=== PATIENT | female | born 1945 | race Caucasian/White ===

== ENCOUNTER 2019-08-03 20:42 | Emergency (ER) | payer OTHER ==
[~2019-08-03] VITALS: Ht 152.4 cm; Wt 73.5 kg
[2019-08-03 20:44] VITALS: BP 169/98
--- NOTE | 2019-08-03 21:03 | NUR ---
PT AMBULATED TO BED 11 WITH STEADY GAIT
--- NOTE | 2019-08-03 21:05 | NUR ---
73 Y/O FEMALE C/O LUMP ON OUTSIDE OF PELVIC AREA. LUMP IS RED, HOT, SWOLLEN, TENDER TO TOUCH; NO DISCHARGE PRESENT; PT STATES TOOK PENICILLIN FOR THE PAST TWO DAYS IN HOPES IT MIGHT HELP, BUT NOT A RX FROM A PCP; DENIES N/V/D; SKIN IS PINK/WARM/DRY; AAOX4 WITH EVEN AND STEADY GAIT; PT DENIES ANY FEVER, CP, SOB, OR COUGH AT THIS TIME; PATIENT STATES PAIN OF 5/10 AT THIS TIME; VSS; PATIENT POSITIONED FOR COMFORT; HOB ELEVATED; BEDRAILS UP X1; BED DOWN AND LOCKED MEDICAL HX: ASTHMA/DM NKA
--- NOTE | 2019-08-03 21:08 | NUR ---
AT BEDSIDE EXAMINING PT
[2019-08-03 21:25] VITALS: BP 169/98
--- NOTE | 2019-08-03 21:25 | NUR ---
DPatient discharged with v/s stable. Written and verbal after care instructions given and explained. Patient alert, oriented and verbalized understanding of instructions. Ambulatory with steady gait. All questions addressed prior to discharge. ID band removed. Patient advised to follow up with PMD. Rx of KACTRIM/KEFLEX given. Patient educated on indication of medication including possible reaction and side effects. Opportunity to ask questions provided and answered.
== END 2019-08-03 21:25 | disposition home or self-care (01) ==
LOC: MED 20:42
DX: N73.2 Unspecified parametritis and pelvic cellulitis (principal); E11.9 Type 2 diabetes mellitus without complications; J45.909 Unspecified asthma, uncomplicated
CPT/HCPCS: 99283

== ENCOUNTER 2019-09-12 00:38 | Emergency (ER) | payer OTHER ==
[~2019-09-12] VITALS: Ht 144.8 cm; Wt 72.6 kg
[2019-09-12 00:55] VITALS: BP 164/75
--- NOTE | 2019-09-12 01:04 | NUR ---
PT TAKEN TO BED 12 VIA WHEELCHAIR.
--- NOTE | 2019-09-12 01:10 | NUR ---
74 Y/O FEMALE BROUGHT INTO ER BY DAUGHTER S/P FALL WITH INJURY TO RIGHT SHOULDER, AND ELBOW. 6/10 PAIN. ABRASION ON RIGHT SHOULDER, AND ELBOW. CAP REFILL <3 SECS, ULNAR/RADIAL PULSES PALPATED STRONG, AND REGULAR. DENIES NUMBNESS TINGLING IN RIGHT EXTREMITY. DENIES HEADACHE, LOC, SOB, NAUSEA, VOMITING, DIARRHEA. R/R EQUAL, AND UNLABORED, VSS. WILL CONTINUE TO MONITOR, BED IN LOW POSITION. NKDA PMH: DM, ASTHMA, HYPERLIPIDEMIA
--- NOTE | 2019-09-12 01:24 | NUR ---
Dr. Thomas examining patient.
[2019-09-12] MEDS ORDERED: KETOROLAC 60 MG/2 ML VIAL IM ONE (01:25)
[2019-09-12] MEDS ORDERED: NEOMYCIN/POLYMYXIN/BACITRACIN 0.9 GM/1 PKT TP ONE (01:30)
--- NOTE | 2019-09-12 01:30 | NUR ---
X-Ray at bedside.
--- NOTE | 2019-09-12 01:37 | NUR ---
NEOSPORIN LEFT AT BEDSIDE TO APPLY TO SCRAPES AFTER AREAS CLEANED BY EMT
--- NOTE | 2019-09-12 02:36 | NUR ---
LONG POSTERIOR ARM SPLINT AND SHOULDER SLING PLACED ON PTS RIGHT ARM. PTS PMSC WNL.
[2019-09-12 02:40] VITALS: BP 164/75
== END 2019-09-12 02:39 | disposition home or self-care (01) ==
LOC: MED 00:38
DX: S50.01XA Contusion of right elbow, initial encounter (principal); S40.211A Abrasion of right shoulder, initial encounter; E11.9 Type 2 diabetes mellitus without complications; I10 Essential (primary) hypertension; W18.39XA Other fall on same level, initial encounter; Y93.89 Activity, other specified; Y92.89 Other specified places as the place of occurrence of the external cause; Y99.8 Other external cause status
CPT/HCPCS: 29105; 73030; 73080; 96372; 99284; J1885; Q0092

== ENCOUNTER 2019-12-06 01:11 | Emergency (ER) | payer OTHER ==
[~2019-12-06] VITALS: Ht 149.9 cm; Wt 73.5 kg
[2019-12-06 01:20] VITALS: BP 180/93
--- NOTE | 2019-12-06 01:28 | NUR ---
PT AMBUALTED TO RESTROOM WITH STEADY GAIT. ACCUCHECK: [phone]. ERMD MADE AWARE.
--- NOTE | 2019-12-06 01:32 | NUR ---
PT PROVIDED UA.
--- NOTE | 2019-12-06 01:33 | NUR ---
PT TAKEN TO BED 4
[2019-12-06] MEDS ORDERED: KETOROLAC 30 MG/ML VIAL IVP ONE (01:45)
--- NOTE | 2019-12-06 01:45 | NUR ---
74 Y/O F PRESENTS TO ED C/O EPIGATRIC PAIN X 3 DAYS. PT SAID THAT SHE'S BEEN EATING A LOT LATELY AND EXPERIENCED EPIGASTRIC PAIN. DENIES N/V/D. PT DIABETIC AND IS NONCOMPLIANT WITH MEDICATION. BED LOCKED AND IN LOWEST POSITION, SIDE RAIL UP X1, WILL CONTINUE TO MONITOR. MHX: DIABETES, ASTHMA NKA
--- NOTE | 2019-12-06 01:53 | NUR ---
LAB AT BEDSIDE.
[2019-12-06 01:58] LABS: APPEARANCE,URINE CLEAR (CLEAR); BILIRUBIN,URINE NEGATIVE (NEGATIVE); BLOOD, URINE NEGATIVE (NEGATIVE); COLOR,URINE YELLOW (YELLOW); LEUKOCYTE ESTERASE ,URINE NEGATIVE (NEGATIVE); NITRITE, URINE NEGATIVE (NEGATIVE); PH,URINE 6.5 (5.0-9.0); UGLUCOSE 3+ (NEGATIVE)
--- NOTE | 2019-12-06 01:58 | NUR ---
PT TAKEN TO CT
[2019-12-06 02:00] LABS: BASOPHILS # (AUTO) 0.1 K/uL (0.00-0.22); BASOPHILS % (AUTO) 0.5 % (0.0-2.0); EOSINOPHILS # (AUTO) 0.3 K/uL (0-0.4); EOSINOPHILS % (AUTO) 2.3 % (0.0-4.0); HEMATOCRIT 39.1 % (36-48); HEMOGLOBIN 12.9 g/dL (12.0-16.0); LYMPHOCYTES # (AUTO) 3.1 K/uL (2.5-16.5); LYMPHOCYTES % (AUTO) 25.8 % (20.5-51.1); MEAN CORPUSCULAR HEMOGLOBIN 29 pg (27-31); MEAN CORPUSCULAR HGB CONC 33 g/dL (33-37); MEAN CORPUSCULAR VOLUME 89.2 fL (80-94); MONOCYTES # (AUTO) 0.9 K/uL (0.8-1.0); MONOCYTES % (AUTO) 7.3 % (1.7-9.3); NEUTROPHILS # (AUTO) 7.6 K/uL (1.8-7.7); NEUTROPHILS % (AUTO) 64.1 % (42.2-75.2); PLATELET COUNT (AUTO) 241 K/uL (140-450); RED BLOOD CELL COUNT(AUTO) 4.39 MIL/uL (4.20-5.40); RED CELL DISTRIBUTION WIDTH 13.2 % (11.6-13.7); WHITE BLOOD COUNT (AUTO) 11.9 K/uL (4.8-10.8)
--- NOTE | 2019-12-06 02:09 | NUR ---
PT BACK FROM CT VIA [facility].
[2019-12-06 02:21] LABS: ALBUMIN 3.2 g/dL (3.4-5.0); ASPARTATE AMINOTRANSFERASE 17 U/L (15-37); CARBON DIOXIDE 30.2 mmol/L (21-32); CHLORIDE 95 mmol/L (98-107); LIPASE 231 U/L (73-393); POTASSIUM 4.2 mmol/L (3.5-5.1); SODIUM SERUM 133 mmol/L (136-145); TOTAL BILIRUBIN 0.4 mg/dL (0.0-1.0); UREA NITROGEN, BLOOD 16 mg/dL (7-18)
--- NOTE | 2019-12-06 02:21 | NUR ---
DR. TRAN AT BEDSIDE EVALUATING PT.
--- NOTE | 2019-12-06 02:28 | NUR ---
RECIVED [facility] LAB REPORT FROM [facility] [id number]. CARLO MADE AWARE.
[2019-12-06] MEDS ORDERED: NACL 0.9% 1,000 ML IV ONE (02:30)
[2019-12-06 02:32] LABS: GLUCOSE 499 mg/dL (74-106)
--- NOTE | 2019-12-06 03:05 | NUR ---
Patient discharged with v/s stable. Written and verbal after care instructions given and explained. Patient alert, oriented and verbalized understanding of instructions. Ambulatory with steady gait. All questions addressed prior to discharge. ID band removed. Patient advised to follow up with PMD. Rx of MOTRIN, PRILOSEC, NORCO given. Patient educated on indication of medication including possible reaction and side effects. Opportunity to ask questions provided and answered.
[2019-12-06 03:06] VITALS: BP 180/93
== END 2019-12-06 03:05 | disposition home or self-care (01) ==
LOC: MED 01:11
DX: R10.13 Epigastric pain (principal); J45.909 Unspecified asthma, uncomplicated; E11.9 Type 2 diabetes mellitus without complications; I10 Essential (primary) hypertension
CPT/HCPCS: 36415; 74176; 80053; 81003; 83690; 85025; 96361; 96374; 99284; J1885; J7030

== ENCOUNTER 2020-03-15 17:14 | Emergency (ER) | payer OTHER ==
[~2020-03-15] VITALS: Ht 152.4 cm; Wt 95.3 kg
[2020-03-15 19:20] VITALS: BP 173/83
--- NOTE | 2020-03-15 19:20 | NUR ---
TO TENT # 01 AMBULATORY
[2020-03-15 20:29] LABS: BASOPHILS % (AUTO) 0.2 % (0.0-2.0); EOSINOPHILS % (AUTO) 0.2 % (0.0-4.0); HEMATOCRIT 41.9 % (36-48); LYMPHOCYTES # (AUTO) 1.7 K/uL (2.5-16.5); LYMPHOCYTES % (AUTO) 25.7 % (20.5-51.1); MEAN CORPUSCULAR HEMOGLOBIN 30 pg (27-31); MEAN CORPUSCULAR HGB CONC 33 g/dL (33-37); MEAN CORPUSCULAR VOLUME 88.5 fL (80-94); MONOCYTES # (AUTO) 0.5 K/uL (0.8-1.0); MONOCYTES % (AUTO) 7.8 % (1.7-9.3); NEUTROPHILS # (AUTO) 4.5 K/uL (1.8-7.7); NEUTROPHILS % (AUTO) 66.1 % (42.2-75.2); PLATELET COUNT (AUTO) 231 K/uL (140-450); RED BLOOD CELL COUNT(AUTO) 4.73 MIL/uL (4.20-5.40); RED CELL DISTRIBUTION WIDTH 13.4 % (11.6-13.7); WHITE BLOOD COUNT (AUTO) 6.8 K/uL (4.8-10.8)
[2020-03-15 20:43] LABS: PROTHROMBIN TIME 9.2 secs (10.8-13.4)
[2020-03-15 20:44] LABS: ALBUMIN 3.2 g/dL (3.4-5.0); ANION GAP 13.1 (8-16); ASPARTATE AMINOTRANSFERASE 33 U/L (15-37); CHLORIDE 97 mmol/L (98-107); CREATININE 0.8 mg/dL (0.6-1.3); GLUCOSE 340 mg/dL (74-106); POTASSIUM 4.1 mmol/L (3.5-5.1); SODIUM SERUM 134 mmol/L (136-145); TOTAL BILIRUBIN 0.4 mg/dL (0.0-1.0); UREA NITROGEN, BLOOD 9 mg/dL (7-18)
--- NOTE | 2020-03-15 21:01 | NUR ---
EKG PERFORMED IN AUTOMOBILE WITH FAMILY PRESENT
--- NOTE | 2020-03-15 23:17 | NUR ---
PT WAS D/C, BUT LEFT WITHOUT RECIEVING DISCHARGE PAPERWORK. PT WAS GIVEN MEDICATION PRESCRIPTIONS AND PAPERWORK ON IN HOME CARE. PT AMBULATED OUT OF ER. PAPERWORK WILL BE HELD FOR PT TO GIFT OFFICER.
[2020-03-15 23:19] VITALS: BP 173/83
== END 2020-03-15 23:20 | disposition home or self-care (01) ==
LOC: MED 17:14
DX: M79.671 Pain in right foot (principal); Z20.828 Contact with and (suspected) exposure to other viral communicable diseases; M79.672 Pain in left foot; J45.909 Unspecified asthma, uncomplicated; E11.9 Type 2 diabetes mellitus without complications; I10 Essential (primary) hypertension
CPT/HCPCS: 36415; 71045; 80053; 83605; 83880; 84484; 85025; 85610; 85730; 87040; 93005; 99285

== ENCOUNTER 2021-02-18 10:44 | Inpatient (IN) | payer OTHER ==
[~2021-02-18] VITALS: Ht 154.9 cm; Wt 69.4 kg
[2021-02-18 10:58] VITALS: BP 158/73
--- NOTE | 2021-02-18 11:05 | NUR ---
Patient ambulated to bed 04 with steady/even gait, accompanied by daughter.
--- NOTE | 2021-02-18 11:25 | NUR ---
75 y/o F BIB daughter c/o left ear ache and pain since Friday. Daughter at bedside states patient began experiencing left ear ache on Friday, and on Friday it radiated from her left ear down to her left hand. Daughter states patient was at home when this began. Rates left ear ache 10/10, throbbing/constant, radiating down L arm. Pt states Ibuprofen 800mg at 0300 with temporary relief. Patient denies fever, chills, SOB, chest pain, abdominal pain, dizziness, headache. Bed locked in lowest position, side rails x 1, call light in reach. PMH: diabetes, HTN, asthma, nerve issues Meds: gabapentin, insulin humalog, insulin lantus NKA
--- NOTE | 2021-02-18 11:35 | NUR ---
Vic sánchez in ED - 02/18/[address] at [address] Coffman is evaluating patient at bedside
--- NOTE | 2021-02-18 11:35 | NUR ---
DR GUSTAFSON AT BEDSIDE EVALUATING PT
[2021-02-18] MEDS ORDERED: OFLOXACIN 0.3% OT 5 ML SOL OT SCH (11:45)
[2021-02-18] MEDS ORDERED: KETOROLAC 30 MG/ML VIAL IVP ONE (11:45)
[2021-02-18] MEDS ORDERED: AMOXIL/CLAVULANATE 875/125 MG 1 TAB PO ONE (11:45)
[2021-02-18] MEDS ORDERED: NACL 0.9% 1,000 ML IV ONE (11:45)
[2021-02-18] MEDS ORDERED: CIPROFLOXACIN HCL OT SCH (12:00)
[2021-02-18] MEDS ORDERED: DEXAMETH OT SCH (12:00)
--- NOTE | 2021-02-18 12:02 | NUR ---
Blood sample handed to CPT Jasmin at ER bedside
[2021-02-18 12:12] LABS: BASOPHILS # (AUTO) 0.1 K/uL (0.00-0.22); EOSINOPHILS # (AUTO) 0.4 K/uL (0-0.4); EOSINOPHILS % (AUTO) 4.1 % (0.0-4.0); HEMATOCRIT 38.7 % (36-48); LYMPHOCYTES # (AUTO) 3.4 K/uL (2.5-16.5); LYMPHOCYTES % (AUTO) 33.5 % (20.5-51.1); MEAN CORPUSCULAR HEMOGLOBIN 30 pg (27-31); MEAN CORPUSCULAR HGB CONC 34 g/dL (33-37); MEAN CORPUSCULAR VOLUME 88.6 fL (80-94); MONOCYTES # (AUTO) 0.7 K/uL (0.8-1.0); MONOCYTES % (AUTO) 6.6 % (1.7-9.3); NEUTROPHILS # (AUTO) 5.6 K/uL (1.8-7.7); NEUTROPHILS % (AUTO) 54.8 % (42.2-75.2); PLATELET COUNT (AUTO) 198 K/uL (140-450); RED BLOOD CELL COUNT(AUTO) 4.37 MIL/uL (4.20-5.40); WHITE BLOOD COUNT (AUTO) 10.3 K/uL (4.8-10.8)
[2021-02-18 12:15] LABS: ANION GAP 11.1 (8-16); CARBON DIOXIDE 29.8 mmol/L (21-32); CHLORIDE 106 mmol/L (98-107); CREATININE 0.5 mg/dL (0.6-1.3); GLUCOSE 152 mg/dL (74-106); POTASSIUM 4.9 mmol/L (3.5-5.1); SODIUM SERUM 142 mmol/L (136-145); UREA NITROGEN, BLOOD 17 mg/dL (7-18)
--- NOTE | 2021-02-18 12:21 | NUR ---
Daughter remains at bedside. Pt states pain 0/10.
--- NOTE | 2021-02-18 12:22 | NUR ---
Patient moved from bed 04 to bed 05.
--- NOTE | 2021-02-18 12:23 | NUR ---
[facility]
--- NOTE | 2021-02-18 12:35 | NUR ---
Pt returned from CT by alonso
[2021-02-18] MEDS ORDERED: ASPIRIN 325 MG TAB PO ONE (13:20)
[2021-02-18] MEDS ORDERED: LORazepam 2 MG/ML VIAL IM/IVP PRN (14:10)
[2021-02-18] MEDS ORDERED: ONDANSETRON 4 MG/2 ML VIAL IVP PRN (14:10)
[2021-02-18] MEDS ORDERED: DOCUSATE SODIUM 100 MG GELCAP PO PRN (14:10)
[2021-02-18] MEDS ORDERED: ZOLPIDEM 5 MG TAB PO PRN (14:10)
[2021-02-18] MEDS ORDERED: ACETAMINOPHEN 325 MG TAB PO PRN (14:10)
[2021-02-18] MEDS ORDERED: MAG SULF 2000 MG/WATER PREMIX 50 ML IV PRN (14:10)
[2021-02-18] MEDS ORDERED: SODIUM PHOS / POTASSIUM PHOS 1 PKT PDR PO PRN (14:10)
[2021-02-18] MEDS ORDERED: MORPHINE SULFATE 2 MG/ML SYR IVP PRN (14:10)
[2021-02-18] MEDS ORDERED: POTASSIUM CHLORIDE 10 MEQ TABER PO PRN (14:10)
[2021-02-18 14:58] LABS: PROTHROMBIN TIME 12.4 secs (10.8-13.4)
--- NOTE | 2021-02-18 15:00 | NUR ---
Pt c/o left arm discomfort; states left ear ache relieved. PRN orders to be given.
[2021-02-18 15:12] LABS: CHOL/HDL RATIO 2.7 (1-4.5); FREE T4 (FREE THYROXINE) 1.01 ng/dL (0.76-1.46); PHOSPHORUS 3.8 mg/dL (2.5-4.9); THYROID STIMULATING HORMONE 2.67 uIU/mL (0.34-3.74)
[2021-02-18] MEDS: NACL 0.9% 1,000 ML IV SCH (15:12)
[2021-02-18] MEDS ORDERED: LISI5TAB18 PO (15:22)
[2021-02-18] MEDS ORDERED: GABA100C PO (15:22)
[2021-02-18] MEDS ORDERED: INSU100S22 SUBQ (15:22)
[2021-02-18] MEDS ORDERED: ATOR10TA PO (15:22)
[2021-02-18] MEDS ORDERED: HUMSLIDE (15:22)
--- NOTE | 2021-02-18 15:22 | NUR ---
Report given to BUDDY Wood.
--- NOTE | 2021-02-18 15:36 | NUR ---
Patient will be admitted to care of Dr. Gonzalez. Admited to Telemetry. Will go to room 120B. Belongings list completed. Report to BUDDY Wood.
--- NOTE | 2021-02-18 15:38 | NUR ---
RECEIVED PATIENT REPORT FROM [facility] ER NURSE. AWAITING FOR PATIENT TO ARRIVE.
[2021-02-18 15:55] VITALS: BP 149/72
--- NOTE | 2021-02-18 15:55 | NUR ---
RECEIVED PATIENT FROM ER NURSE VIA JOHN. ADMITTED FOR CHEST PAIN. PT IS AOX4, ABLE TO MAKE NEEDS KNOWN. PARAGUAYAN SPEAKING. RESPIRATIONS EVEN AND UNLABORED. ON ROOM AIR AND NO RESPIRATORY DISTRESS NOTED. SKIN IS WARM AND DRY. IV SITE ON RAC 20G. ABD SOFT, FLAT, AND NON-DISTENDED. BOWEL SOUNDS ACTIVE IN ALL QUADRANTS. DENIES PAIN AT THE MOMENT. PLAN OF CARE DISCUSSED. SAFETY PRECAUTIONS IN PLACE. BED IN LOW POSITION. CALL LIGHT WITHIN REACH. WILL CONTINUE TO MONITOR.
[2021-02-18] MEDS ORDERED: DEXTROSE 50% 50 ML SYR IVP PRN ×2 (16:55→18:25)
[2021-02-18] MEDS ORDERED: INSULIN LISPRO SLIDING SCALE 100 UNITS/ML VIAL SUBQ PRN (16:55)
--- NOTE | 2021-02-18 17:48 | NUR ---
ASSISTED PATIENT TO THE BATHROOM. PT DENIES PAIN AT THE MOMENT.
--- NOTE | 2021-02-18 19:45 | NUR ---
ENDORSED TO SKI MOLDER NURSE FOR CONTINUITY OF CARE. PT IS STABLE.
--- NOTE | 2021-02-18 19:50 | NUR ---
RECEIVED REPORT AT BEDSIDE.PT IS A,A&O.RESP.UNLABORED IN RA.IVF INFUSING WELL.TELE IS ON AND SHOWING SR.CALL LIGHT WITHIN REACH.VS STABLE.WILL CONT.MONITORING.NO C/O PAIN NOW.
[2021-02-18 20:00] VITALS: BP 155/80
[2021-02-18] MEDS: ATORVASTATIN 20 MG TAB PO SCH (20:52)
[2021-02-18] MEDS: GABAPENTIN 100 MG CAP PO SCH (20:53)
[2021-02-18] MEDS ORDERED: BLOOD GLUCOSE MONITORING 1 DEV DEV FS SCH (21:00)
[2021-02-18] MEDS ORDERED: CIPROFLOXACIN 0.3% OP 2.5 ML BTL OT SCH (21:00)
[2021-02-18] MEDS ORDERED: CIPROFLOXACIN 0.3% OP 2.5 ML BTL OP SCH (21:00)
[2021-02-18] MEDS: BLOOD GLUCOSE MONITORING 1 DEV DEV FS SCH (21:02)
[2021-02-18] MEDS: INSULIN LISPRO SLIDING SCALE 100 UNITS/ML VIAL SUBQ PRN (21:03)
[2021-02-19] VITALS: BP 145/79
--- NOTE | 2021-02-19 01:00 | NUR ---
CHANGED ROOM DUE TO BATH ROOM PROBLEM.HR IS SR.NO DISTRESS NOTED NOW.FREQUENT ROUND DONE.VS STABLE.CALL LIGHT IN REACH.
[2021-02-19] MEDS: NACL 0.9% 1,000 ML IV SCH ×3 (01:15→20:10)
[2021-02-19] MEDS: HYDROcodone/APAP 5/325 MG 1 TAB TAB PO PRN (03:46)
--- NOTE | 2021-02-19 03:52 | NUR ---
HAD C/O EARACHE PO PAIN MED GIVEN.WILL REASSESS PER PROTOCOL.
[2021-02-19 04:00] VITALS: BP 146/79
[2021-02-19 05:36] LABS: BASOPHILS % (AUTO) 0.4 % (0.0-2.0); EOSINOPHILS # (AUTO) 0.4 K/uL (0-0.4); EOSINOPHILS % (AUTO) 3.6 % (0.0-4.0); HEMOGLOBIN 12.2 g/dL (12.0-16.0); LYMPHOCYTES % (AUTO) 30.1 % (20.5-51.1); MEAN CORPUSCULAR HEMOGLOBIN 30 pg (27-31); MEAN CORPUSCULAR HGB CONC 34 g/dL (33-37); MEAN CORPUSCULAR VOLUME 88.4 fL (80-94); MONOCYTES # (AUTO) 0.6 K/uL (0.8-1.0); MONOCYTES % (AUTO) 6.2 % (1.7-9.3); NEUTROPHILS # (AUTO) 5.9 K/uL (1.8-7.7); NEUTROPHILS % (AUTO) 59.7 % (42.2-75.2); PLATELET COUNT (AUTO) 266 K/uL (140-450); RED BLOOD CELL COUNT(AUTO) 4.07 MIL/uL (4.20-5.40); RED CELL DISTRIBUTION WIDTH 13.2 % (11.6-13.7)
[2021-02-19] MEDS: BLOOD GLUCOSE MONITORING 1 DEV DEV FS SCH ×4 (05:55→20:35)
--- NOTE | 2021-02-19 06:11 | NUR ---
SLEPT WELL.NO C/O EARACHES NOW.MH=119.DID NOT COVER.IVF IS IN PROGRESS.CALL LIGHT IN REACH.HR IS SR.
[2021-02-19 06:19] LABS: ALBUMIN 2.8 g/dL (3.4-5.0); ANION GAP 8.9 (8-16); ASPARTATE AMINOTRANSFERASE 16 U/L (15-37); CARBON DIOXIDE 30.6 mmol/L (21-32); CHLORIDE 109 mmol/L (98-107); CREATININE 0.6 mg/dL (0.6-1.3); GLUCOSE 132 mg/dL (74-106); MAGNESIUM 1.9 mg/dL (1.8-2.4); POTASSIUM 4.5 mmol/L (3.5-5.1); SODIUM SERUM 144 mmol/L (136-145); TOTAL BILIRUBIN 0.3 mg/dL (0.0-1.0); UREA NITROGEN, BLOOD 11 mg/dL (7-18)
--- NOTE | 2021-02-19 07:21 | NUR ---
REPORT GIVEN TO NOE RN.PT'S CONDITION IS STABLE.
[2021-02-19 08:00] VITALS: BP 175/82
[2021-02-19] MEDS: GABAPENTIN 100 MG CAP PO SCH ×2 (08:39→20:29)
--- NOTE | 2021-02-19 08:49 | NUR ---
PATIENT HAS BEEN SCREENED AND CATEGORIZED LOW NUTRITION RISK. PATIENT WILL BE SEEN WITHIN 7 DAYS OF ADMISSION. 02/25/[address]
[2021-02-19] MEDS ORDERED: lisinopriL 5 MG TAB PO SCH (09:00)
[2021-02-19] MEDS: INSULIN LISPRO SLIDING SCALE 100 UNITS/ML VIAL SUBQ PRN ×3 (11:40→20:36)
[2021-02-19 12:00] VITALS: BP 176/89
--- NOTE | 2021-02-19 12:12 | NUR ---
Patient's blood pressure elevated. Notified Physician Dr Hollingsworth and awaiting further orders.
[2021-02-19] MEDS ORDERED: hydrALAZINE 20 MG/ML VIAL IVP PRN (12:30)
[2021-02-19] MEDS ORDERED: lisinopriL 10 MG TAB PO SCH (13:00)
[2021-02-19 16:00] VITALS: BP 145/70
--- NOTE | 2021-02-19 19:20 | NUR ---
RECEIVED REPORT FROM AM SHIFT NURSE, FOR CONTINUITY OF CARE. PT IS AWAKE, A&OX4. PT IS AMBULATORY. NO S/S OF DISTRESS. PT IS ON ROOM AIR. BREATHING IS EVEN AND UNLABORED. DENIES PAIN AT THIS TIME. SKIN IS WARM, DRY AND NON DIAPHORETIC. IV ON L FA 22G RUNNING NS @ 100MLS/HR. CALL LIGHT WITHIN REACH. ALL SAFETY MEASURES IN PLACE. WILL CONTINUE TO MONITOR.
[2021-02-19 20:00] VITALS: BP 176/82
[2021-02-19] MEDS: ATORVASTATIN 20 MG TAB PO SCH (20:30)
--- NOTE | 2021-02-19 20:35 | NUR ---
BLOOD GLUCOSE CHECKED, 305. ADMINISTERED INSULIN COVERAGE AND SCHEDULED MEDICATION. PT TOLERATED IT WELL. WILL CONTINUE TO MONITOR.
--- NOTE | 2021-02-19 21:59 | NUR ---
PT BP 176/82, ADMINISTERED PRN APRESOLINE IVP ORDERED, PT TOLERATED IT WELL. ALL SAFETY MEASURES IN PLACE. WILL CONTINUE TO MONITOR.
[2021-02-20] VITALS: BP 134/69
--- NOTE | 2021-02-20 00:05 | NUR ---
CHECKED ON PT, NO S/S OF DISTRESS. RESPIRATIONS EVEN AND UNLABORED. V/S ARE STABLE. CALL LIGHT WITHIN REACH. WILL CONTINUE TO MONITOR.
[2021-02-20] MEDS: NACL 0.9% 1,000 ML IV SCH (01:42)
--- NOTE | 2021-02-20 02:20 | NUR ---
MADE ROUNDS ON PT, SLEEPING. NO S/S OF DISTRESS. CHEST RISE AND FALL IS SYMMETRICAL. BED ON LOW/LOCKED POSITION. ALL SAFETY MEASURES IN PLACE. WILL CONTINUE TO MONITOR.
[2021-02-20 04:00] VITALS: BP 141/74
[2021-02-20] MEDS: HYDROcodone/APAP 5/325 MG 1 TAB TAB PO PRN (05:23)
--- NOTE | 2021-02-20 05:23 | NUR ---
PT COMPLAINS OF HEADACHE 09/07. REQUESTED PAIN MEDICATION. ADMINISTERED NORCO TAB ORDERED. PT TOLERATED IT WELL. WILL CONTINUE TO MONITOR.
[2021-02-20 06:00] LABS: BASOPHILS # (AUTO) 0.1 K/uL (0.00-0.22); BASOPHILS % (AUTO) 0.7 % (0.0-2.0); EOSINOPHILS # (AUTO) 0.3 K/uL (0-0.4); EOSINOPHILS % (AUTO) 3.3 % (0.0-4.0); HEMATOCRIT 34.2 % (36-48); HEMOGLOBIN 11.6 g/dL (12.0-16.0); LYMPHOCYTES # (AUTO) 3.2 K/uL (2.5-16.5); LYMPHOCYTES % (AUTO) 32.2 % (20.5-51.1); MEAN CORPUSCULAR HEMOGLOBIN 30 pg (27-31); MEAN CORPUSCULAR HGB CONC 34 g/dL (33-37); MEAN CORPUSCULAR VOLUME 88.5 fL (80-94); MONOCYTES # (AUTO) 0.7 K/uL (0.8-1.0); MONOCYTES % (AUTO) 6.8 % (1.7-9.3); NEUTROPHILS # (AUTO) 5.7 K/uL (1.8-7.7); PLATELET COUNT (AUTO) 265 K/uL (140-450); RED BLOOD CELL COUNT(AUTO) 3.87 MIL/uL (4.20-5.40)
[2021-02-20 06:25] LABS: ALBUMIN 2.7 g/dL (3.4-5.0); ANION GAP 7.7 (8-16); ASPARTATE AMINOTRANSFERASE 17 U/L (15-37); CARBON DIOXIDE 29.1 mmol/L (21-32); CHLORIDE 109 mmol/L (98-107); CREATININE 0.6 mg/dL (0.6-1.3); GLUCOSE 192 mg/dL (74-106); POTASSIUM 3.8 mmol/L (3.5-5.1); SODIUM SERUM 142 mmol/L (136-145); TOTAL BILIRUBIN 0.3 mg/dL (0.0-1.0); UREA NITROGEN, BLOOD 13 mg/dL (7-18)
[2021-02-20] MEDS: BLOOD GLUCOSE MONITORING 1 DEV DEV FS SCH ×2 (06:40→11:30)
[2021-02-20] MEDS: INSULIN LISPRO SLIDING SCALE 100 UNITS/ML VIAL SUBQ PRN ×2 (06:40→13:02)
--- NOTE | 2021-02-20 06:40 | NUR ---
BLOOD GLUCOSE CHECKED 201, ADMINISTERED INSULIN COVERAGE ORDERED. PT TOLERATED IT WELL. WILL CONTINUE TO MONITOR.
--- NOTE | 2021-02-20 07:30 | NUR ---
RECEIVED PT AAOX4. NO SOB NOTED. NO C/O PAIN AT THIS TIME. IV TO LFA PATENT AND INTACT. CHEST, DIMINISHED AIR ENTRY TO THE BASES. ABDOMEN SOFT, BOWEL SOUNDS PRESENT. NO EDEMA NOTED. INSTRUCTED PT TO CALL FOR ASSISTANCE, CALL LIGHT WITHIN REACH, PT VERBALIZED UNDERSTANDING.
[2021-02-20 08:00] VITALS: BP 161/76
[2021-02-20] MEDS: GABAPENTIN 100 MG CAP PO SCH (08:46)
[2021-02-20] MEDS ORDERED: lisinopriL 20 MG TAB PO SCH (09:00)
--- NOTE | 2021-02-20 09:25 | NUR ---
pt ambulatory to the bathroom with standby assist. activity tolerated well by pt. no SOB noted. no signs of pain. pt's gait steady with cane.
[2021-02-20] MEDS ORDERED: LISI40TA12 PO (10:12)
[2021-02-20] MEDS ORDERED: CIPR7.5S OT (10:12)
[2021-02-20 12:00] VITALS: BP 145/75
--- NOTE | 2021-02-20 13:30 | NUR ---
DISCHARGE INSTRUCTIONS GIVEN TO PT'S GRAND DAUGHTER ASIA WHICH SPEAKS FLUENT PASHTO AND TELUGU. ALL QUESTIONS ANSWERED, BOTH VERBALIZED UNDERSTANDING. ASIA IS AWARE THAT PT'S ESCRIPTS WERE SENT TO THEIR PREFERRED PHARMACY. ARM BANDS AND IV REMOVED, CANNULA TIP INTACT.
--- NOTE | 2021-02-20 13:40 | NUR ---
PT IS WHEELED TO THE FRONT LOBBY IN STABLE CONDITION, NO COMPLAINTS MADE. PT IS D/C HOME WITH GRAND DAUGHTER.
[2021-02-20] MEDS ORDERED: OFLOXACIN 0.3% OT 5 ML SOL OT SCH (21:00)
== END 2021-02-20 13:40 | disposition home or self-care (01) | DRG 154 ==
LOC: MED 10:44 → MTU 14:09 → MMU 02-19 00:50
PROVIDERS: ADMIT Family Medicine; ATTEND Family Medicine
DX: H60.92 Unspecified otitis externa, left ear (principal); E43 Unspecified severe protein-calorie malnutrition; G90.9 Disorder of the autonomic nervous system, unspecified; E11.40 Type 2 diabetes mellitus with diabetic neuropathy, unspecified; E78.5 Hyperlipidemia, unspecified; I10 Essential (primary) hypertension; J45.909 Unspecified asthma, uncomplicated; Z79.4 Long term (current) use of insulin; Z79.899 Other long term (current) drug therapy
CPT/HCPCS: 36415; 70450; 71045; 80048; 80053; 82150; 82948; 83036; 83690; 83735; 83880; 84100; 84439; 84443; 84484; 85025; 85610; 85730; 87081; 93005; 93880; 96374; 97163-GP; 99285; J0360; J1885; J2270; J2405; Q0092

== ENCOUNTER 2022-04-24 15:24 | Emergency (ER) | payer OTHER, MEDICAID ==
[~2022-04-24] VITALS: Ht 160 cm; Wt 77.1 kg
[~2022-04-24 15:24] MED LIST: ATOR10TA PO; CIPR7.5S OT; GABA100C PO; HUMSLIDE; INSU100S22 SUBQ; LISI40TA12 PO
[2022-04-24 15:37] VITALS: BP 176/106
[2022-04-24] MEDS ORDERED: cefTRIAXone 1,000 MG VIAL ONE (15:51)
[2022-04-24] MEDS ORDERED: LIDOCAINE MPF 1% 5 ML ONE (15:51)
[2022-04-24] MEDS: cefTRIAXone 1,000 MG in LIDOCAINE MPF 1% 2.1 ML IM ONE (16:00)
--- NOTE | 2022-04-24 16:05 | NUR ---
76F presents to ED with c/o lower lip infection x 2 days. Pt reports being seen at [facility] on 04/15/22 and admitted s/p fall and laceration to lower lip, states no ABX were given during admission or Rx'd upon d/c. Pt referred by PCP today to visit ED for evaluation and tx of infection. Upon assessment, pt's stitches still intact, swelling noted to lower lip, pt denies pain.
[2022-04-24] MEDS ORDERED: CEPH-588 PO ×2 (16:25→17:27)
[2022-04-24] MEDS ORDERED: SULF-59 PO ×2 (16:25→17:27)
[2022-04-24] MEDS ORDERED: ACET-5629 PO ×2 (16:25→17:27)
[2022-04-24 16:58] VITALS: BP 176/106
--- NOTE | 2022-04-24 16:58 | NUR ---
Patient discharged with v/s stable. Written and verbal after care instructions about cellulitis and laceration care given and explained. Patient alert, oriented and verbalized understanding of instructions. Ambulatory with steady gait. All questions addressed prior to discharge. ID band removed. Patient advised to follow up with PMD. Rx of Percocet, Keflex and Bactrim given. Patient educated on indication of medication including possible reaction and side effects. Opportunity to ask questions provided and answered.
== END 2022-04-24 16:58 | disposition home or self-care (01) ==
LOC: MED 15:24
DX: T81.49XA Infection following a procedure, other surgical site, initial encounter (principal); J45.909 Unspecified asthma, uncomplicated; I10 Essential (primary) hypertension; Z79.899 Other long term (current) drug therapy; Z79.4 Long term (current) use of insulin; Y83.8 Other surgical procedures as the cause of abnormal reaction of the patient, or of later complication, without mention of misadventure at the time of the procedure; Y92.89 Other specified places as the place of occurrence of the external cause
CPT/HCPCS: 96372; 99283; J0696; J2001

== ENCOUNTER 2022-04-26 15:59 | Emergency (ER) | payer OTHER, MEDICAID ==
[~2022-04-26] VITALS: Ht 152.4 cm; Wt 74.8 kg
[~2022-04-26 15:59] MED LIST changes: +ACET-5629 PO; +CEPH-588 PO; +SULF-59 PO
[2022-04-26 16:04] VITALS: BP 134/63
--- NOTE | 2022-04-26 16:30 | NUR ---
PT AMBULATED TO BED 3
--- NOTE | 2022-04-26 16:35 | NUR ---
PT HERE FOR SUTURE REMOVAL. AAO4, AMBULATORY, NO COMPLICATION TO THE SITE. PMH: DM
[2022-04-26 17:40] VITALS: BP 134/63
--- NOTE | 2022-04-26 17:40 | NUR ---
Patient discharged with v/s stable. Written and verbal after care instructions given and explained. Patient verbalized understanding. Ambulatory with WALKER AND DAUGHTER, steady gait. All questions addressed prior to discharge. Advised to follow up with PMD.
== END 2022-04-26 17:40 | disposition home or self-care (01) ==
LOC: MED 15:59
DX: S01.511D Laceration without foreign body of lip, subsequent encounter (principal); J45.909 Unspecified asthma, uncomplicated; I10 Essential (primary) hypertension; E11.9 Type 2 diabetes mellitus without complications; Z79.4 Long term (current) use of insulin; Z79.899 Other long term (current) drug therapy; Z48.02 Encounter for removal of sutures; X58.XXXD Exposure to other specified factors, subsequent encounter
CPT/HCPCS: 99281

== ENCOUNTER 2022-05-19 13:49 | Emergency (ER) | payer OTHER, MEDICAID ==
[~2022-05-19] VITALS: Ht 152.4 cm; Wt 72.6 kg
[2022-05-19 14:01] VITALS: BP 126/71
--- NOTE | 2022-05-19 15:11 | NUR ---
Dr. Hernandez evaluating patient at bedside.
[2022-05-19 15:17] LABS: BASOPHILS % (AUTO) 0.4 % (0.0-2.0); EOSINOPHILS # (AUTO) 0.3 K/uL (0-0.4); EOSINOPHILS % (AUTO) 2.7 % (0.0-4.0); HEMATOCRIT 37.4 % (36-48); HEMOGLOBIN 12.5 g/dL (12.0-16.0); LYMPHOCYTES # (AUTO) 2.3 K/uL (2.5-16.5); LYMPHOCYTES % (AUTO) 23.1 % (20.5-51.1); MEAN CORPUSCULAR HEMOGLOBIN 30 pg (27-31); MEAN CORPUSCULAR HGB CONC 34 g/dL (33-37); MEAN CORPUSCULAR VOLUME 89.3 fL (80-94); MONOCYTES # (AUTO) 0.5 K/uL (0.8-1.0); MONOCYTES % (AUTO) 5.1 % (1.7-9.3); NEUTROPHILS # (AUTO) 6.8 K/uL (1.8-7.7); NEUTROPHILS % (AUTO) 68.7 % (42.2-75.2); PLATELET COUNT (AUTO) 240 K/uL (140-450); RED BLOOD CELL COUNT(AUTO) 4.18 MIL/uL (4.20-5.40); RED CELL DISTRIBUTION WIDTH 13.6 % (11.6-13.7); WHITE BLOOD COUNT (AUTO) 9.9 K/uL (4.8-10.8)
[2022-05-19 15:26] LABS: APPEARANCE,URINE CLEAR (CLEAR); BILIRUBIN,URINE NEGATIVE (NEGATIVE); BLOOD, URINE TRACE-I (NEGATIVE); COLOR,URINE YELLOW (YELLOW); LEUKOCYTE ESTERASE ,URINE NEGATIVE (NEGATIVE); NITRITE, URINE NEGATIVE (NEGATIVE); UGLUCOSE 3+ (NEGATIVE)
[2022-05-19 15:34] LABS: ALBUMIN 3.3 g/dL (3.4-5.0); ANION GAP 11.5 (8-16); ASPARTATE AMINOTRANSFERASE 14 U/L (15-37); CHLORIDE 99 mmol/L (98-107); CREATININE 0.8 mg/dL (0.6-1.3); POTASSIUM 4.5 mmol/L (3.5-5.1); SODIUM SERUM 135 mmol/L (136-145); TOTAL BILIRUBIN 0.4 mg/dL (0.0-1.0); UREA NITROGEN, BLOOD 21 mg/dL (7-18)
--- NOTE | 2022-05-19 15:39 | NUR ---
BL SUBDURAL HEMATOMA PER RADIOLOGY Juvencio MENDOZA
--- NOTE | 2022-05-19 15:46 | NUR ---
PER DAUGHTER PT FELL 2 DAYS AGO AND LOST "FORCE" IN HER LEGS, UNABLE TO STAND, PER DAUGHTER NOTED THIS AT 0100 2 DAYS AGO
--- NOTE | 2022-05-19 15:57 | NUR ---
76 Y/O FEMALE BIB DAUGHTER C/O WEAKNESS X 2 DAYS. PER PT DAUGHTER SHE STARTED FEELING WEAK AT 0100 2 DAYS AGO. SHE STATED THAT SHE FELL ON HER BUTTOCKS WHEN GOING TO THE BATHROOM. DENIES HITTING HEAD, NO LAC, NO BRUISING NOTED ON THE HEAD. BLOOD SUGAR 442 AT THIS TIME. PMH: DM, ASTHMA NKA
--- NOTE | 2022-05-19 16:57 | NUR ---
SPOKE WITH ANAID FOR TRANSFER, ER TO ER.
[2022-05-19 17:06] LABS: RBC,URINE 0 /HPF (0-5); WBC,URINE 0-5 /HPF (0-5)
[2022-05-19 17:10] VITALS: BP 126/71
--- NOTE | 2022-05-19 17:12 | NUR ---
Patient to be transferred to [facility]. Is being transferred due to HIGHER LEVEL OF CARE. Receiving facility has accepting physician and available space. ER physician has signed transfer form. Patient or responsible libertarian has agreed to transfer and signed form. Patient belongings inventoried and will be sent with patient. Copy of nursing notes, lab reports, EKG, Physicians Orders and X-rays to be sent with patient. Report called to ANAID HARDY RN at receiving facility. [facility] ambulance service has been called for transfer. ETA is 45 MINUTES.
[2022-05-19 17:27] LABS: GLUCOSE 545 mg/dL (74-106)
[2022-05-19 17:51] LABS: PROTHROMBIN TIME 9.5 secs (10.8-13.4)
== END 2022-05-19 17:10 | disposition short-term general hospital (02) ==
LOC: MED 13:49
DX: I62.00 Nontraumatic subdural hemorrhage, unspecified (principal); R53.1 Weakness; Z20.822 Contact with and (suspected) exposure to COVID-19; J45.909 Unspecified asthma, uncomplicated; E11.9 Type 2 diabetes mellitus without complications; I10 Essential (primary) hypertension; Z79.899 Other long term (current) drug therapy; Z79.2 Long term (current) use of antibiotics; Z79.4 Long term (current) use of insulin; Z79.891 Long term (current) use of opiate analgesic
CPT/HCPCS: 36415; 70450; 80053; 81001; 84484; 85025; 85610; 85730; 93005; 99291

== ENCOUNTER 2022-09-03 02:10 | Emergency (ER) | payer OTHER, MEDICAID ==
[~2022-09-03] VITALS: Ht 149.9 cm; Wt 72.6 kg
[2022-09-03 02:38] VITALS: BP 158/80
--- NOTE | 2022-09-03 02:52 | NUR ---
PT. IN BED 5 W/ FAMILY MEMBER.
--- NOTE | 2022-09-03 03:00 | NUR ---
Note codycamilla in ED - 09/03/22 at 0356 by [email or web address] 5YM WITH MOTHER BEDSIDE AND OLDER BROTHER PRESENTS WITH AN ABRASION ON BACK OF R HEAD. PT MOTHER STATED THE PT AND BROTHER WAS PLAYING AND PT FELL AND HIT HIS HEAD ON COFFEE TABLE. PT MOM DENIES ANY NVD, HEADACHES. PT IS BEDSIDE COLORING AND TALKING WITH LAUGHTER. [facility]-PT MOM DENIES NKA
--- NOTE | 2022-09-03 03:00 | NUR ---
77 Y/O F FROM HOME PRESENTS WITH A MECHANICAL FALL R SIDE OF HEAD WITH 2/10 PAIN BLEEDING AND BURNING AT SITE. PT IS A&OX4, SKIN INTACT, RESPIRATIONS EVEN AND UNLABORED. PT DENIES ANY NVD OR HEADACHES. PMH- DM, ASTHMA, HTN, CRANIOTOMY NKA MEDS-INSULIN
--- NOTE | 2022-09-03 03:32 | NUR ---
FAMILY MEMBER BEDSIDE
[2022-09-03] MEDS ORDERED: ACETAMINOPHEN EXTRA STRENGTH 500 MG TAB PO ONE ×2 (03:35→10:40)
--- NOTE | 2022-09-03 03:38 | NUR ---
PT TO CT VIA WHEELCHAIR
--- NOTE | 2022-09-03 03:45 | NUR ---
PT RETURNED FROM CT
--- NOTE | 2022-09-03 03:46 | NUR ---
Patient resting in bed, A/Ox4, chest rise and fall symmetrical, no s/s of distress, patient on monitor, bed rail up.
--- NOTE | 2022-09-03 03:56 | NUR ---
Dr. Pearce verbally informed of patient's last BP and HR. Dr. Pearce verbalized udnerstanding, no new orders.
[2022-09-03] MEDS ORDERED: LIDOCAINE/EPI 2% 1:100000 20 ML VIAL INJ ONE (04:35)
[2022-09-03 05:19] LABS: BASOPHILS # (AUTO) 0.1 K/uL (0.00-0.22); BASOPHILS % (AUTO) 0.4 % (0.0-2.0); EOSINOPHILS # (AUTO) 0.4 K/uL (0-0.4); EOSINOPHILS % (AUTO) 3.5 % (0.0-4.0); HEMATOCRIT 36.2 % (36-48); LYMPHOCYTES # (AUTO) 3.4 K/uL (2.5-16.5); LYMPHOCYTES % (AUTO) 28.8 % (20.5-51.1); MEAN CORPUSCULAR HEMOGLOBIN 29 pg (27-31); MEAN CORPUSCULAR HGB CONC 33 g/dL (33-37); MEAN CORPUSCULAR VOLUME 88.1 fL (80-94); MONOCYTES # (AUTO) 0.9 K/uL (0.8-1.0); NEUTROPHILS % (AUTO) 59.3 % (42.2-75.2); PLATELET COUNT (AUTO) 276 K/uL (140-450); RED CELL DISTRIBUTION WIDTH 13.6 % (11.6-13.7); WHITE BLOOD COUNT (AUTO) 11.7 K/uL (4.8-10.8)
[2022-09-03 05:35] LABS: ANION GAP 6.7 (8-16); CARBON DIOXIDE 32.6 mmol/L (21-32); CHLORIDE 101 mmol/L (98-107); CREATININE 0.7 mg/dL (0.6-1.3); GLUCOSE 375 mg/dL (74-106); POTASSIUM 4.3 mmol/L (3.5-5.1); PROTHROMBIN TIME 9.3 secs (10.8-13.4); SODIUM SERUM 136 mmol/L (136-145); UREA NITROGEN, BLOOD 23 mg/dL (7-18)
--- NOTE | 2022-09-03 06:04 | NUR ---
MARBIN GUPTA ASKED TO HOLD OFF ON IV UNTIL FURTHER NOTICE
[2022-09-03] MEDS ORDERED: BACI-416 TP (06:32)
[2022-09-03] MEDS ORDERED: ACET-10509 PO (06:32)
--- NOTE | 2022-09-03 07:11 | NUR ---
Pt report given to MICHAEL GOODWIN. Transfer of care at this time.
--- NOTE | 2022-09-03 09:30 | NUR ---
Pt a/o x4, breathing equal and unlabored, speech clear, family at bedside.
--- NOTE | 2022-09-03 09:39 | NUR ---
Pt to ct in stable condition.
[2022-09-03 10:49] VITALS: BP 167/82
--- NOTE | 2022-09-03 10:51 | NUR ---
Patient discharged with v/s stable. Written and verbal after care instructions given and explained. Patient verbalized understanding. Ambulatory with steady gait. All questions addressed prior to discharge. Advised to follow up with PMD.
== END 2022-09-03 10:50 | disposition home or self-care (01) ==
LOC: MED 02:10
DX: S01.01XA Laceration without foreign body of scalp, initial encounter (principal); S06.5X0A Traumatic subdural hemorrhage without loss of consciousness, initial encounter; J45.909 Unspecified asthma, uncomplicated; E11.9 Type 2 diabetes mellitus without complications; I10 Essential (primary) hypertension; Z79.899 Other long term (current) drug therapy; Z79.4 Long term (current) use of insulin; Z98.890 Other specified postprocedural states; W19.XXXA Unspecified fall, initial encounter; Y93.89 Activity, other specified; Y92.89 Other specified places as the place of occurrence of the external cause; Y99.8 Other external cause status
CPT/HCPCS: 12001; 36415; 70450; 80048; 85025; 85610; 85730; 99285; J2001